=== PATIENT | female | born 1950 | race Hispanic/Latino ===

== ENCOUNTER → 2021-01-13 | Outpatient (CLI) | payer MEDICARE | LOC: US 09:14 | PROVIDERS: ATTEND Internal Medicine Cardiovascular Disease | DX: K76.89 Other specified diseases of liver (principal); I11.9 Hypertensive heart disease without heart failure; R94.30 Abnormal result of cardiovascular function study, unspecified | CPT/HCPCS: 76700 ==

== ENCOUNTER 2022-08-07 14:08 | Emergency (ER) | payer MEDICARE ==
[~2022-08-07] VITALS: Ht 160 cm; Wt 59.0 kg
[2022-08-07] MEDS ORDERED: ASPIRIN81 MG PO (14:28)
[2022-08-07] MEDS ORDERED: PRAVASTATIN SOD20 MG PO (14:28)
[2022-08-07] MEDS ORDERED: AMLODIPINE BESYL5 MG PO (14:28)
[2022-08-07] MEDS ORDERED: METOPROLOL SUCC50 MG PO (14:28)
[2022-08-07] MEDS ORDERED: LISINOPRIL-HCT1 EACH PO (14:28)
[2022-08-07] MEDS ORDERED: MECLIZINE HCL12.5 MG PO (14:28)
[2022-08-07 15:04] VITALS: BP 145/76; PULSE 74
[2022-08-07 15:16] LABS: BASOPHILS % 0.4 % (0.0-1.0); EOSINOPHILS # (AUTO) 0.1 (0.0-0.4); EOSINOPHILS % 1.9 % (0.0-6.0); HEMATOCRIT 37.7 % (34.2-44.1); HEMOGLOBIN 12.4 g/dL (12.0-16.0); LYMPHOCYTES # (AUTO) 1.3 (1.0-3.2); MEAN CORPUSCULAR HEMOGLOBIN 31.8 pg (28-32); MEAN CORPUSCULAR HGB CONC 32.9 g/dL (31-35); MEAN CORPUSCULAR VOLUME 96.7 fL (81-99); MONOCYTES # (AUTO) 0.5 (0.2-0.8); MONOCYTES % 10.1 % (4.4-11.3); NEUTROPHILS # (AUTO) 2.7 (2.1-6.9); PLATELET COUNT 232 x10e3/uL (140-360); RED CELL DISTRIBUTION WIDTH 12.5 % (11.7-14.4)
[2022-08-07 15:17] LABS: CLARITY,URINE CLEAR (CLEAR); COLOR,URINE YELLOW (YELLOW)
[2022-08-07 15:18] LABS: KETONES,URINE NEGATIVE (NEGATIVE); LEUKOCYTE ESTERASE ,URINE NEGATIVE (NEGATIVE); NITRITE,URINE NEGATIVE (NEGATIVE); PROTEIN,URINE DIPSTICK NEGATIVE (NEGATIVE); URINE UROBILINOGEN 0.2 mg/dL (0.2 - 1)
[2022-08-07 15:30] LABS: ANION GAP 11.6 mmol/L (8-16); CALCIUM 9.4 mg/dL (8.4-10.2); CREATININE, SERUM 0.74 mg/dL (0.57-1.11); POTASSIUM 3.6 mmol/L (3.5-5.1)
[2022-08-07 15:32] LABS: AMORPHOUS SEDIMENT,URINE FEW (FEW); WBC,URINE (MAN) 0-5 /HPF (0-5)
[2022-08-07 16:21] VITALS: O2SAT 99
== END 2022-08-07 17:47 | disposition home or self-care (01) ==
LOC: ER 14:10
DX: R42 Dizziness and giddiness (principal); I10 Essential (primary) hypertension; E78.5 Hyperlipidemia, unspecified; F41.9 Anxiety disorder, unspecified
CPT/HCPCS: 36415; 80048; 81001; 85025; 93005; 99283